=== PATIENT | male | born 2000 | race Caucasian/White ===

== ENCOUNTER 2020-08-14 09:21 | Emergency (ER) | payer MEDICAID ==
[~2020-08-14] VITALS: Ht 177.8 cm; Wt 90.9 kg
[2020-08-14 09:27] VITALS: BP 134/56
--- NOTE | 2020-08-14 11:15 | NUR ---
eye cart at bed side
--- NOTE | 2020-08-14 11:16 | NUR ---
IRMA TEJEDA AT BEDSIDE
[2020-08-14] MEDS ORDERED: proparacaine 0.5% ophthalmic drops 15ml EACHEYE ONE (11:25)
[2020-08-14] MEDS ORDERED: ERYT1OIN6 LEFTEYE (11:55)
[2020-08-14] MEDS ORDERED: erythromycin ophthalmic ointment 1gm tube LEFTEYE ONE (11:55)
== END 2020-08-14 12:22 | disposition home or self-care (01) ==
LOC: ER 09:21
DX: H57.12 Ocular pain, left eye (principal); Z79.2 Long term (current) use of antibiotics
CPT/HCPCS: 99283

== ENCOUNTER 2020-10-12 17:31 | Emergency (ER) | payer MEDICAID ==
[~2020-10-12] VITALS: Ht 177.8 cm; Wt 100.0 kg
[2020-10-12 17:54] VITALS: BP 137/84
[2020-10-12] MEDS ORDERED: LIDOcaine 1% W/epiNEPHrine 1:200,000 10ml vial IJ ONE (19:15)
[2020-10-12] MEDS ORDERED: sulfamethoxazole/trimethoprim DS (800/160mg) tablet PO ONE (19:15)
[2020-10-12] MEDS ORDERED: cephalexin 250mg capsule PO ONE (19:15)
[2020-10-12] MEDS ORDERED: SULF1TAB45 PO (19:39)
[2020-10-12] MEDS ORDERED: CEPH-585 PO (19:39)
[2020-10-12] MEDS ORDERED: ibuprofen tablet 400 MG TABLET PO ONE (19:55)
[2020-10-12] MEDS ORDERED: ibuprofen 200mg tablet PO ONE (20:00)
== END 2020-10-12 20:48 | disposition home or self-care (01) ==
LOC: ER 17:31
DX: F17.200 Nicotine dependence, unspecified, uncomplicated (principal); H60.02 Abscess of left external ear; L02.416 Cutaneous abscess of left lower limb; L02.415 Cutaneous abscess of right lower limb; Z79.2 Long term (current) use of antibiotics; Z79.899 Other long term (current) drug therapy
CPT/HCPCS: 10061; 99284